=== PATIENT | female | born 1945 | race Caucasian/White ===

== ENCOUNTER 2022-03-31 22:43 | Inpatient (IN) | payer MEDICARE ==
[~2022-03-31] VITALS: Ht 162.6 cm; Wt 73.9 kg
--- NOTE | 2022-03-31 23:14 | NUR ---
KENJI. FROM HOME ELEVATED BP. PT REPORTS IN THE 200s. CURRENT 168/84. -N/V. - DIZZINESS. PT ADMITS TO BE STRESSED. PT A/OX4. TOLERATING R/A WELL WITH NO RESP DISTRESS. SAFETY MEASURES IN PLACE. CONNECTED PT TO POX AND MONITOR.
--- NOTE | 2022-04-01 00:05 | NUR ---
RAC #20G S/L BLOOD COLLECTED AND SENT TO LAB
--- NOTE | 2022-04-01 00:06 | NUR ---
NIGHT WORKER AT PT'S BEDSIDE
--- NOTE | 2022-04-01 00:11 | NUR ---
EMT AT PT'S BEDSIDE FOR EKG
--- NOTE | 2022-04-01 00:14 | NUR ---
TALIB BS 143; DR. BASHIR DO AWARE.
[2022-04-01 00:23] LABS: BASOPHILS # (AUTO) 0.1 K/uL (0.0-0.2); BASOPHILS % (AUTO) 1.5 % (0.0-2.0); EOSINOPHILS % (AUTO) 0.9 % (0.0-6.0); HEMATOCRIT 42 % (33-45); HEMOGLOBIN 13.8 g/dL (11.5-14.8); LYMPHOCYTES # (AUTO) 1.1 K/uL (0.8-4.8); LYMPHOCYTES % (AUTO) 12.5 % (20.0-44.0); MEAN CORPUSCULAR HGB CONC 33 g/dl (31.0-36.0); MEAN CORPUSCULAR VOLUME 89 fL (82-100); MONOCYTES # (AUTO) 0.6 K/uL (0.1-1.30); MONOCYTES % (AUTO) 6.3 % (2.0-12.0); NEUTROPHILS # (AUTO) 7.1 K/uL (1.8-8.9); NEUTROPHILS % (AUTO) 78.8 % (43.0-81.0); PLATELET COUNT (AUTO) 192 K/uL (150-450); RED BLOOD CELL COUNT(AUTO) 4.74 MIL/uL (4.0-5.2)
[2022-04-01 00:43] LABS: CALCIUM, SERUM 8.8 mg/dL (8.5-10.1); CARBON DIOXIDE 26 mmol/L (21-32); CHLORIDE 104 mmol/L (98-107); CREATININE 0.9 mg/dL (0.6-1.3); GLUCOSE 151 mg/dL (74-106); POTASSIUM 3.3 mmol/L (3.5-5.1); SODIUM SERUM 139 mmol/L (136-145); UREA NITROGEN, BLOOD 20 mg/dL (7-18)
[2022-04-01 00:46] LABS: ALANINE AMINOTRANSFERASE 19 U/L (12-78); ALBUMIN 3.7 g/dL (3.4-5.0); ALKALINE PHOSPHATASE 61 U/L (46-116); ASPARTATE AMINOTRANSFERASE 22 U/L (15-37); BILIRUBIN,DIRECT 0.1 mg/dL (0.0-0.2); BILIRUBIN,TOTAL 0.4 mg/dL (0.2-1.0)
--- NOTE | 2022-04-01 02:51 | NUR ---
TROPONIN 54; DR BASHIR DO AWARE.
[2022-04-01] MEDS ORDERED: ASPIRIN 325 MG TABLET PO ONE (03:00)
--- NOTE | 2022-04-01 03:04 | NUR ---
COVID SWAB COLLECTED AND SENT TO LAB
[2022-04-01] MEDS ORDERED: ASPIRIN 325 MG TABLET ONE (03:09)
[2022-04-01] MEDS ORDERED: TEMAZEPAM 15 MG CAPSULE PO PRN (03:30)
[2022-04-01] MEDS ORDERED: MORPHINE SULFATE INJ 2 MG/ML DISP.SYRIN IV PRN (03:30)
[2022-04-01] MEDS ORDERED: MAGNESIUM HYDROXIDE 30 ML UDC PO PRN (03:30)
[2022-04-01] MEDS ORDERED: LORAZEPAM 1 MG TABLET PO PRN (03:30)
[2022-04-01] MEDS ORDERED: HYDROCODONE/APAP 5/325MG TABLET PO PRN (03:30)
[2022-04-01] MEDS ORDERED: ONDANSETRON HCL/PF 4 MG/2 ML VIAL IVP PRN (03:30)
[2022-04-01] MEDS ORDERED: ACETAMINOPHEN 325 MG TABLET PO PRN (03:30)
[2022-04-01] MEDS ORDERED: MAG HYDROX/AL HYDROX/SIMETH 30 ML UDC PO PRN (03:30)
[2022-04-01] MEDS ORDERED: NITROGLYCERIN 0.4 MG/TAB BOTTLE SL PRN (03:30)
[2022-04-01] MEDS ORDERED: Z GUARD REMEDY 4 OZ OINT TP PRN (03:30)
--- NOTE | 2022-04-01 03:50 | NUR ---
REPORT GIVEN TO NILDA Hairston RN FOR [facility]
--- NOTE | 2022-04-01 04:36 | NUR ---
PT TRANSFERRING TO 309 VIA ACLS PROTOCOL. VSS. ALL BELONGINGS WITH PT.
--- NOTE | 2022-04-01 04:50 | NUR ---
INSPECTOR AGRICULTURAL COMMODITIESCANDY BUTCHER NOTES RECEIVED PATIENT AWAKE, ALERT AND ORIENTED. A/O X 4. PATIENT WAS TRANSFERRED FROM ER VIA WHEELCHAIR, WITH NO SIGN OF DISTRESS. ON ROOM AIR, BREATHING EVEN AND UNLABORED, NO DISTRESS OR SHORTNESS OF BREATH NOTED. IV ACCESS RAC #18G, INTACT PATENT AND FLUSHING WELL. PATIENT WITH EXTERNAL UNIFORM ATTENDANT WITH CURRENT READING OF SR AND CURRENT HR OF 82. FALL AND SAFETY MEASURES IN PLACE. BED ALRAM ON. BED IN LOWEST AND LOCKED POSITION. CALL LIGHT AND TABLE WITHIN EASY REACH. SIDE RAILS UP X 2. WILL CONTINUE TO MONITOR AND ENDORSE TO THE NEXT SHIFT FOR THE [facility].
[2022-04-01] MEDS: ENOXAPARIN SODIUM 40 MG/0.4 ML DISP.SYRIN SQ SCH (06:06)
--- NOTE | 2022-04-01 07:30 | NUR ---
FABRICATION MANAGER OPENING NOTES RECEIVED PATIENT ON BED, AWAKE AND A/O X4. ON ROOM AIR TOLERATING WELL. NO SOB NOTED. NOT IN DISTRESS. WITH NO COMPLAINTS OF PAIN OR DISCOMFORT AT THIS TIME. ON TELE MONITOR CURRENTLY READING SINUS RHYTHM AT 90BPM. WITH IV ACCESS AT THE RIGHT AC G18 SALINE LOCKED, PATENT AND INTACT. SAFETY MEASURES IN PLACED. CALL LIGHT WITHIN REACH. BED ON LOWEST LOCKED POSITION, SIDE RAILS UP X2. WILL CONTINUE TO MONITOR.
[2022-04-01 08:00] VITALS: BP 146/70
[2022-04-01] MEDS: PANTOPRAZOLE 40 MG TABLET.DR PO SCH (08:26)
[2022-04-01] MEDS: ASPIRIN 81 MG TAB.CHEW PO SCH (08:26)
[2022-04-01] MEDS ORDERED: SERT50TA12 PO (09:02)
[2022-04-01] MEDS ORDERED: LOSARTAN (09:02)
[2022-04-01] MEDS ORDERED: ESTR1TAB28 PO (09:02)
[2022-04-01] MEDS ORDERED: AMLO2.5T4 PO (09:02)
[2022-04-01] MEDS ORDERED: SYNTHROID (09:02)
[2022-04-01] MEDS ORDERED: POTASSIUM CHLORIDE 20 MEQ TAB.PRT.SR PO ONE (10:30)
[2022-04-01 12:00] VITALS: BP 149/66
[2022-04-01 16:00] VITALS: BP 152/65
--- NOTE | 2022-04-01 18:15 | NUR ---
IRONER OR PRESSER CLOSING NOTES PATIENT ON BED, AWAKE AND A/O X4. ON ROOM AIR TOLERATING WELL. NO SOB NOTED. NOT IN DISTRESS. WITH NO COMPLAINTS OF PAIN OR DISCOMFORT AT THIS TIME. ON TELE MONITOR CURRENTLY READING SINUS RHYTHM AT 79BPM. WITH IV ACCESS AT THE RIGHT AC G18 SALINE LOCKED, PATENT AND INTACT. DUE MEDS GIVEN. SAFETY MEASURES IN PLACED. CALL LIGHT WITHIN REACH. BED ON LOWEST LOCKED POSITION, SIDE RAILS UP X2. WILL ENDORSE TO NEXT SHIFT FOR [facility].
--- NOTE | 2022-04-01 19:36 | NUR ---
RN Opening Notes Received pt in bed, awake, watching TV. AOx4, able to make needs known. On RA and tolerating well. No SOB noted. No s/sx of respiratory distress noted. Tele monitor detects SR with rate of 79. IV access in RAC #18G. IV is intact, patent, and flushing well. Safety precautions in place: bed in lowest, locked position, siderails upX2, and brakes on. Table and call light within reach. All needs met at this time.
[2022-04-01 20:00] VITALS: BP 159/84
[2022-04-01] MEDS: AMLODIPINE BESYLATE 5 MG TABLET PO SCH (20:01)
[2022-04-01] MEDS ORDERED: FUROSEMIDE 20 MG/2 ML VIAL IV SCH (20:30)
[2022-04-02] VITALS: BP 161/79
[2022-04-02 04:00] VITALS: BP 156/78
[2022-04-02 06:34] LABS: BASOPHILS % (AUTO) 0.4 % (0.0-2.0); EOSINOPHILS % (AUTO) 1.5 % (0.0-6.0); HEMATOCRIT 43 % (33-45); HEMOGLOBIN 13.9 g/dL (11.5-14.8); LYMPHOCYTES # (AUTO) 1.2 K/uL (0.8-4.8); LYMPHOCYTES % (AUTO) 20.2 % (20.0-44.0); MEAN CORPUSCULAR HGB CONC 33 g/dl (31.0-36.0); MEAN CORPUSCULAR VOLUME 90 fL (82-100); MONOCYTES # (AUTO) 0.5 K/uL (0.1-1.30); MONOCYTES % (AUTO) 8.5 % (2.0-12.0); NEUTROPHILS % (AUTO) 69.4 % (43.0-81.0); PLATELET COUNT (AUTO) 190 K/uL (150-450); RED BLOOD CELL COUNT(AUTO) 4.76 MIL/uL (4.0-5.2); WHITE BLOOD COUNT (AUTO) 5.7 K/uL (4.3-11.0)
--- NOTE | 2022-04-02 06:46 | NUR ---
RN Closing Notes Pt in bed, asleep, awakens to verbal stimuli. AOx4, pleasant and able to make needs known. On RA and tolerating well. No SOB noted. No s/sx of respiratory distress noted. Tele monitor detects SR with rate of 60. IV access in RAC #18G. IV is intact, patent, and flushing well. All orders carried out. All needs met. Pt kept clean and dry. Safety precautions in place: bed in lowest, locked position, siderails upX2, and brakes on. Table and call light within reach. Will endorse to oncoming shift for [facility].
[2022-04-02 06:56] LABS: CALCIUM, SERUM 8.8 mg/dL (8.5-10.1); CREATININE 0.8 mg/dL (0.6-1.3); MAGNESIUM 2.1 mg/dL (1.8-2.4); PHOSPHORUS 3.6 mg/dL (2.5-4.9); POTASSIUM 3.7 mmol/L (3.5-5.1)
[2022-04-02 07:11] LABS: THYROID STIMULATING HORMONE 28.961 uIU/mL (0.358-3.74)
--- NOTE | 2022-04-02 07:50 | NUR ---
JACQUARD LOOM FIXER OPENING NOTE Patient in bed, awake. A/O x 3, able to make needs known. On room air, breathing evenly and unlabored. No SOB or s/s of distress noted. IV access on RAC #18, intact and patent. On tele monitoring showing SR, HR 84. Patient denies chest pain or any discomfort at this time. Safety precautions in place: bed in low, locked position; siderails up x2; call light within reach. Will continue to monitor.
[2022-04-02] MEDS ORDERED: LISINOPRIL (10MG) 10 MG TABLET PO SCH (09:00)
[2022-04-02 09:26] VITALS: BP 160/75
[2022-04-02] MEDS: AMLODIPINE BESYLATE 5 MG TABLET PO SCH (09:26)
[2022-04-02] MEDS: ASPIRIN 81 MG TAB.CHEW PO SCH (09:26)
[2022-04-02] MEDS: PANTOPRAZOLE 40 MG TABLET.DR PO SCH (09:26)
[2022-04-02] MEDS: ENOXAPARIN SODIUM 40 MG/0.4 ML DISP.SYRIN SQ SCH (09:28)
[2022-04-02] MEDS ORDERED: LEVO112T5 PO (14:51)
[2022-04-02] MEDS ORDERED: LOSA50TA39 PO ×2 (14:51→15:17)
[2022-04-02] MEDS ORDERED: LEVO137T24 PO (14:52)
[2022-04-02] MEDS ORDERED: LISI10TA29 PO (15:17)
[2022-04-02] MEDS ORDERED: AMLO-212 PO (15:17)
[2022-04-02] MEDS ORDERED: SERT50TA12 PO (15:17)
[2022-04-02] MEDS ORDERED: LEVO125T8 PO (15:17)
--- NOTE | 2022-04-02 16:30 | NUR ---
DISCHARGE NOTE Received patient for discharge. Patient is A/O x 4, able to make needs known. Stable on room air, no SOB or s/s of distress noted. Denies any pain or discomfort at this time. All belongings accounted for, belonging sheet signed. Discharge instructions given verbally and in written form, verbalized understanding. IV access removed, pressure dressing applied. Patient left unit in stable condition via private car with friend.
== END 2022-04-02 16:10 | disposition home or self-care (01) | DRG 280 ==
LOC: ER 22:54 → TELE 04-01 03:45
PROVIDERS: ADMIT Nurse Practitioner Acute Care; ATTEND Nurse Practitioner Acute Care
DX: I11.0 Hypertensive heart disease with heart failure (principal); I21.A1 Myocardial infarction type 2; I50.33 Acute on chronic diastolic (congestive) heart failure; J90 Pleural effusion, not elsewhere classified; I16.0 Hypertensive urgency; Z20.822 Contact with and (suspected) exposure to COVID-19; E05.90 Thyrotoxicosis, unspecified without thyrotoxic crisis or storm; Z79.899 Other long term (current) drug therapy; Z79.890 Hormone replacement therapy; E87.6 Hypokalemia
CPT/HCPCS: 36415; 71045-TC; 80048-TC; 80061-TC; 80076-TC; 82962-TC; 83735-TC; 84100-TC; 84443-TC; 84484-TC; 85025-TC; 87081-TC; 93307-TC; C9803; G0378; J1650; J1940